=== PATIENT | female | born 1990 | race Two or more races ===

== ENCOUNTER → 2024-08-19 | Emergency (ER) | payer OTHER ==
[~2024-08-19] VITALS: Ht 157.5 cm; Wt 72.6 kg
[~2024-08-19] MED LIST: CEFTRIAXONE SODIUM 1,000 MG VIAL IM ONE; CEFTRIAXONE SODIUM 1,000 MG VIAL ONE; CEPHALEXIN750 MG PO; MEPERIDINE HCL/PF 25 MG/ML VIAL IM ONE; PEPCID AC20 MG PO
[2024-08-19 19:58] VITALS: BP 118/85; O2SAT 98
== END | disposition home or self-care (01) ==
LOC: ER 19:42
DX: L02.415 Cutaneous abscess of right lower limb (principal); Z88.6 Allergy status to analgesic agent

== ENCOUNTER 2024-12-25 09:21 | Emergency (ER) | payer OTHER ==
[~2024-12-25] VITALS: Ht 157.5 cm; Wt 83.5 kg
[~2024-12-25 09:21] MED LIST changes: -CEFTRIAXONE SODIUM 1,000 MG VIAL IM ONE; -CEFTRIAXONE SODIUM 1,000 MG VIAL ONE; -MEPERIDINE HCL/PF 25 MG/ML VIAL IM ONE
[2024-12-25] MEDS ORDERED: FAMOtidine 10 MG/ML (4ML VIAL) IV PUSH ONE (11:00)
[2024-12-25] MEDS ORDERED: ONDANSETRON HCL 2 MG/ML VIAL IM ONE (11:00)
[2024-12-25] MEDS ORDERED: ONDANSETRON HCL 2 MG/ML VIAL ONE (11:14)
[2024-12-25] MEDS ORDERED: FAMOTIDINE/PF 20 MG/2 ML VIAL ONE (11:15)
[2024-12-25 12:19] LABS: HEMATOCRIT 40.9 % (36.0-45.00); HEMOGLOBIN 13.5 g/dL (12.0-15.00); MEAN CELL VOLUME 89.4 fL (80.00-100.00); MEAN CORPUSCULAR HEMOGLOBIN 29.5 pg (27.00-32.0); PLATELET COUNT 261 K/uL (150-450); RED BLOOD COUNT 4.57 M/uL (4.00-6.00); RED CELL DISTRIBUTION WIDTH 13.1 % (11.5-14.5)
[2024-12-25] MEDS ORDERED: ZOFRAN8 MG PO (14:04)
== END 2024-12-25 14:18 | disposition home or self-care (01) ==
LOC: ER 09:23
PROVIDERS: General Practice
DX: K29.70 Gastritis, unspecified, without bleeding (principal); Z88.6 Allergy status to analgesic agent; Z20.822 Contact with and (suspected) exposure to COVID-19
CPT/HCPCS: 36415; 96365; 96372; 99282; J2405; J3490